=== PATIENT | male | born 1965 | race Caucasian/White ===

== ENCOUNTER 2020-08-30 04:38 | Emergency (ER) | payer OTHER ==
[~2020-08-30] VITALS: Ht 175.3 cm; Wt 79.5 kg
--- NOTE | 2020-08-30 04:43 | PHYS DOC ---
General Adult HPI: HPI: ".. I was little off yesterday.... but I woke up this morning my usual time about 230- 0300 hrs.. and I noted I this chest pain... when I take a deep breath.. in and out.. more out.. never had this before.. and it been constant since about 0300 hrs..." Patient is a 54 year old male retired 20 yrs [employer] who presents with above hx and complaints of pleuritic chest pain which has been constant since 0300 hrs. Patient rates pain as approximately 4 out of 10 currently and at the most it was 6 out of 10. Had recently a nonproductive cough. Patient denies any feelings of dysrhythmia or tachycardia. The patient denies any trauma. Patient denies any recent travel or sick contacts. Patient normally healthy. Patient never had a history of heart issues. There is no family history of early onset of heart issues. Patient is up-to-date with vaccinations. Patient follows at [facility]. 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 Pt. 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 Pt has no history of blood clots with him or family members. There are no family members that are ill. Review of Systems: Review of Systems: Constitutional: Denies fever or chills Eyes: Denies change in visual acuity HENT: Denies nasal congestion or sore throat Respiratory: Complains of pleuritic chest pain Cardiovascular: Complaints of pleuritic chest pain . No edema. No dysrhythmia. GI: Denies abdominal pain, nausea, vomiting, bloody stools or diarrhea : Denies dysuria Musculoskeletal: Denies back pain or joint pain Integument: Denies rash Neurologic: Denies headache, focal weakness or sensory changes Endocrine: Denies polyuria or polydipsia Lymphatic: Denies swollen glands Psychiatric: Denies depression or anxiety Family History: Family History: Noncontributory to presentation Current Medications: Current Meds: See nursing for home meds Allergies: Allergies: No known drug allergies Physical Exam: PE: Constitutional: Well developed, well nourished, no acute distress, non-toxic appearance. [] HENT: Normocephalic, atraumatic, bilateral external ears normal, oropharynx moist, no oral exudates, nose normal. [] Eyes: PERRLA, EOMI, conjunctiva normal, no discharge. [] Neck: Normal range of motion, no tenderness, supple, no stridor. [] Cardiovascular:Heart rate regular rhythm, no murmur [] Lungs & Thorax: Bilateral breath sounds equal at apex with few scattered wheezes auscultation . There is a slight rub on deep breaths anterior chest wall right.. Patient localizes pain across his mid chest. Abdomen: Bowel sounds normal, soft, no tenderness, no masses, no pulsatile masses. [] Skin: Warm, dry, no erythema, no rash. [] Back: No tenderness, no CVA tenderness. [] Extremities: No tenderness, no cyanosis, no clubbing, ROM intact, no edema. [No cording in legs Neurologic: Alert and oriented X 3, normal motor function, normal sensory function, no focal deficits noted. [] Psychologic: Affect normal, judgement normal, mood normal. [] EKG: EKG: My interpretation EKG shows a sinus rhythm at 61 bpm. No acute morphology [] Radiology/Procedures: Radiology/Procedures: [][place] [address] IMAGING REPORT Signed PATIENT: STARLA TA ACCOUNT: [id number] : 1965 LOCATION: ER AGE: 54 SEX: M EXAM STATUS: REG ER ORD. PHYSICIAN: JOSE LUIS SALINAS MD REASON: Chest pain PROCEDURE: PORTABLE CHEST 1V Single view chest dated 08/30/2020: No comparison available. Clinical Indication: Chest pain. Findings: Single upright portable exam of the chest was performed. Heart size and mediastinal contours are within normal limits given technique. The lungs are clear without evidence of focal consolidation. Vascular interstitium is within normal limits. Impression:: Negative portable chest. Electronically signed by: Konrad Booth MD (08/30/2020 5:17 AM) [facility] [place] DICTATED AND SIGNED BY: KONRAD BOOTH MD DATE: 08/30/20 0516 CC: JOSE LUIS SALINAS MD; PCP,NO ~MTH0 0 Heart Score: HEART Score for Chest Pain: HEART Score for Chest Pain Response (Comments) Value History Slighlty/Non-Suspicious 0 ECG Normal 0 Age >45 - < 65 1 Risk Factors No Risk Factors 0 Troponin < Normal Limit 0 Total 1 Risk Factors: Risk Factors: DM, Current or recent (<one month) smoker, HTN, HLP, family history of CAD, obesity. Risk Scores: Score 0 - 3: 2.5% MACE over next 6 weeks - Discharge Home Score 4 - 6: 20.3% MACE over next 6 weeks - Admit for Clinical Observation Score 7 - 10: 72.7% MACE over next 6 weeks - Early Invasive Strategies Course & Med Decision Making: Course & Med Decision Making Pertinent Labs and Imaging studies reviewed. (See chart for details) Patient take a daily aspirin and get outpatient stress testing. Push fluids. Take Tylenol and ibuprofen for pain. Use MDI 2 puffs 4 times a day. Take Zithromax 250 a day. Return if any concerns. Follow up COVID test result.s Return if any concerns. Impression: 1. Pleuritic chest pain-suspect viral 2. Elevated monocytes 11 [] Dragon Disclaimer: Dragon Disclaimer: This electronic medical record was generated, in whole or in part, using a voice recognition dictation system. Departure Departure: Referrals: PCP,NO (PCP) Scripts Azithromycin (ZITHROMAX) 250 Mg Tablet 250 MG PO DAILY for ANTI-BIOTIC for 5 Days, #5 TAB 0 Refills Prov: JOSE LUIS SALINAS MD 08/30/20 Dragon Disclaimer This chart was dictated in whole or in part using Voice Recognition software in a busy, high-work load, and often noisy Emergency Department environment. It may contain unintended and wholly unrecognized errors or omissions. Dragon Disclaimer This chart was dictated in whole or in part using Voice Recognition software in a busy, high-work load, and often noisy Emergency Department environment. It may contain unintended and wholly unrecognized errors or omissions. Dragon Disclaimer This chart was dictated in whole or in part using Voice Recognition software in a busy, high-work load, and often noisy Emergency Department environment. It may contain unintended and wholly unrecognized errors or omissions. JOSE LUIS SALINAS MD Aug 30, 2020 04:43
[2020-08-30] MEDS ORDERED: IV RINGERS SOLUTION,LACTATED 1,000 ML IV SCH (05:00)
[2020-08-30] MEDS ORDERED: ASPIRIN CHEWABLE 81 MG TABLET. PO ONE (05:00)
--- NOTE | 2020-08-30 05:03 | EKG ---
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
[2020-08-30 05:10] LABS: BASO % 0 % (0-3); EOS # 0.2 x10^3/uL (0.0-0.7); EOS % 4 % (0-3); HEMATOCRIT 43.4 % (39.0-53.0); HEMOGLOBIN 14.3 g/dL (13.0-17.5); LYMPH # 1.6 x10^3/uL (1.0-4.8); LYMPH % 32 % (24-48); MEAN CORPUSCULAR HEMOGLOBIN 30 pg (25-35); MEAN CORPUSCULAR HGB CONC 33 g/dL (31-37); MEAN CORPUSCULAR VOLUME 91 fL (79-100); MONO # 0.5 x10^3/uL (0.0-1.1); MONO % 11 % (0-9); NEUT # 2.8 x10^3uL (1.8-7.7); NEUT % 54 % (31-73); PLATELET COUNT 224 x10^3/uL (140-400); RED BLOOD COUNT 4.75 x10^6/uL (4.30-5.70); RED CELL DISTRIBUTION WIDTH 13.6 % (11.5-14.5); WHITE BLOOD COUNT 5.1 x10^3/uL (4.0-11.0)
[2020-08-30 05:18] LABS: CALCIUM 8.6 mg/dL (8.5-10.1); GFR 77.6; POTASSIUM 4.4 mmol/L (3.5-5.1)
--- NOTE | 2020-08-30 05:19 | RAD ---
Single view chest dated 08/30/2020: No comparison available. Clinical Indication: Chest pain. Findings: Single upright portable exam of the chest was performed. Heart size and mediastinal contours are with in normal limits given technique. The lungs are clear without evidence of focal consolidation. Vascul ar interstitium is within normal limits. Impression:: Negative portable chest. Electronically signed by: Toribio Booth MD (08/30/2020 5:17 AM) [facility]
[2020-08-30 05:34] LABS: ALBUMIN 3.7 g/dL (3.4-5.0); DIRECT BILIRUBIN 0.1 mg/dL (0.0-0.2); MAGNESIUM 2.1 mg/dL (1.8-2.4); TOTAL BILIRUBIN 0.4 mg/dL (0.2-1.0); TOTAL PROTEIN 6.9 g/dL (6.4-8.2)
[2020-08-30] MEDS ORDERED: KETOROLAC 30 MG/ML VIAL. IVP ONE (06:30)
[2020-08-30 06:42] VITALS: BP 130/70
[2020-08-30 06:51] LABS: BARBITURATES NEG (NEG); BENZODIAZEPINES NEG (NEG); CANNABINOIDS NEG (NEG); COCAINE NEG (NEG); METHADONE NEG (NEG); OPIATES NEG (NEG); PHENCYCLIDINE NEG (NEG)
[2020-08-30 06:54] LABS: AMPHETAMINE/METHAMPHETAMINE NEG (NEG)
[2020-08-30 07:01] LABS: BILIRUBIN,URINE NEG (NEG); CLARITY,URINE CLEAR; COLOR,URINE YELLOW; GLUCOSE,URINE NEG (NEG)
[2020-08-30 07:02] LABS: BACTERIA,URINE 0 /HPF (0-FEW); NITRITE,URINE NEG (NEG); RBC,URINE 0 /HPF (0-2); SQUAMOUS EPITHELIAL CELL,UR OCC /LPF; UROBILINOGEN,URINE 0.2 mg/dL (0.2 mg/dL); WBC,URINE 0 /HPF (0-4)
[2020-08-30] MEDS ORDERED: AZIT250T PO (07:07)
[2020-08-30] MEDS ORDERED: ALBUTEROL SULFATE 8GM INHALER. INH ONE (07:15)
[2020-08-30] MEDS ORDERED: AZITHROMYCIN 250 MG TABLET. PO ONE ×2 (07:15→07:30)
[2020-08-30 14:46] LABS: THYROID STIM HORMONE (TSH) 2.956 uIU/mL (0.358-3.740)
== END 2020-08-30 07:28 | disposition home or self-care (01) ==
LOC: ER 04:38
DX: R07.81 Pleurodynia (principal); D72.821 Monocytosis (symptomatic)
CPT/HCPCS: 36415; 71045; 80048; 80061; 80076; 80307; 81001; 82150; 82550; 83690; 83735; 83880; 84443; 84484; 85025; 85379; 85610; 85730; 93005; 94640; 96361; 96374; 99285; J1885; J7120; 94664

== ENCOUNTER → 2020-10-09 | Outpatient (CLI) | payer OTHER ==
[~2020-10-09] MED LIST: AZIT250T PO
--- NOTE | 2020-10-09 15:27 | RAD ---
MR#: [id number] Date of Study: 10/09/2020 Ordering Physician: RANDY MURRIETA, Referring Physician: MELISSA BRIGHT Tech: APPROVED REPORT Test Type: Exercise Stress Nurse/Tech: RT [place] (R) (N) Test Indications: chest pain 08/30/2020 came to ER Cardiac History: none Medications: 81mg ASA Medical History: none Resting ECG: sinus rhythm Resting Heart Rate: 70 bpm Resting Blood Pressure: 123/71mmHg Pretest Chest Pain: None Nurse/Tech Notes Consent: The procedure was explained to the patient in lay terms. Informed consent was witnessed. Prem eout was entered into [employer]. History and Stress Test performed by RT [place] (R) (N) POST EXERCISE Reason for Termination: Fatigue Target HR: Yes Max HR: 199 bpm 14% of Maximum Predicted HR: 139 bpm Exercise duration: 8:18 min:sec, 3 Stage Exercise capacity: 10METs Max Blood Pressure: 178/80mmHg INTERPRETATION Stress EKG Conclusion: 1. Abnormal EKG response with stress with PVCs noted during early stress and mild 1 to [address] segment depression suggestive but not conclusive for any significant ischem ia. Conclusion 1. Normal baseline resting EKG 2. Adequate workload with approximately 10 metabolic equivalents achieved. No chest pain reported. 3. Abnormal stress EKG response with frequent PVCs during early stress and subtle lateral ST segment depression suggestive but not confirmatory for ischemia. Recommendations Clinical correlation recommended, consider repeat testing with addition of imaging such as echocardio gram or nuclear study. Signed by : Ace Pedroza, Electronically Approved : 10/09/2020 15:27:20
== END ==
LOC: NM 08:38
PROVIDERS: ATTEND Family Medicine
DX: R07.9 Chest pain, unspecified (principal)
CPT/HCPCS: 93017